=== PATIENT | female | born 1985 | race Caucasian/White ===

== ENCOUNTER → 2017-12-01 12:50 | Outpatient (CLI) | payer MEDICAID, SELFPAY ==
[2017-12-01 13:39] LABS: Absolute Lymphocyte Count 1.79 X10^3/ul (0.83-4.51); Absolute Neutrophil Count 5.5 X10^3/uL (2.0-7.7); Basophil# 0.05 X10^3/uL; Basophil% 0.6 % (0-1); Eosinophil# 0.13 X10^3/uL; Eosinophils% 1.6 % (0-5); Hematocrit 40.2 % (37-47); Hemoglobin 13.5 g/dl (12.0-15.0); Lymphocyte # 1.79 X10^3/ul (4.0); Lymphocyte % 22.2 % (19-41); Mean Corp Hgb Conc 33.6 g/gl (32-36); Mean Corpuscular Hgb 28.5 pg (27.0-32.0); Mean Platelet Vol. 11.4 fl (6.2-12.0); Monocyte# 0.62 X10^3/uL; Monocyte% 7.7 % (0-10); Neutrophil # 5.46 X10^3/uL (2.7-7.7); Neutrophil % 67.7 % (47-70); Platelet Count 287 K/mm3 (150-450); RBC Distribution Width CV 14.8 % (11.6-14.6); RBC Distribution Width SD 44.8 fl (35.1-43.9); Red Blood Count 4.73 M/mm3 (4.2-5.4); White Blood Count 8.1 K/mm3 (4.4-11.0)
[2017-12-01 13:47] LABS: POSITIVE COUNT NO; POSITIVE DIFFERENTIAL NO; POSITIVE MORPHOLOGY NO
[2017-12-01 14:34] LABS: Free T3 2.7 pg/mL (2.18-3.98); T4 Free Direct 1.33 ng/dL (0.76-1.46)
[2017-12-01 15:05] LABS: HIV - WCH Non-Reactive (Nonreactive); Rubella IgG 20.7 IU/mL
[2017-12-01 18:11] LABS: Chlamydia Trachomatis by PCR Negative (Negative); Neisserai gonorrhoeae by PCR Negative (Negative); Probe Check PASS; Sample Adequacy Control PASS; Specimen Processing Control PASS
[2017-12-02 14:24] LABS: HEPATITIS B SURFACE AG Negative (Negative)
[2017-12-04 10:15] LABS: HPV Reflexed? NOT INDICATED
[2017-12-05 02:34] LABS: Rapid Plasmin Reagin (RPR) NONREACTIVE (NONREACTIVE)
== END ==
PROVIDERS: Nurse Practitioner; Visit Provider Obstetrics & Gynecology
DX: O99.280 Endocrine, nutritional and metabolic diseases complicating pregnancy, unspecified trimester (principal); E03.9 Hypothyroidism, unspecified; Z3A.00 Weeks of gestation of pregnancy not specified; Z12.4 Encounter for screening for malignant neoplasm of cervix
CPT/HCPCS: 36415; 84439; 84443; 84481; 85025; 86592; 86703; 86762; 86850; 86900; 87086; 87088; 87340; 87491; 87591; 88175; G0145

== ENCOUNTER → 2018-01-05 14:12 | Outpatient (CLI) | payer MEDICAID, SELFPAY ==
[2018-01-05 15:41] LABS: Free T3 2.8 pg/mL (2.18-3.98); Thyroid Stim Hormone (TSH) 0.25 uIU/mL (0.358-3.74)
[2018-01-08 03:07] LABS: AFP MoM Value 0.86 (.); AFP Value-EIA 22.7 ng/mL (.); Comment Report (.); DIA MoM Value 1.26 (.); DIA Value-EIA 175.46 pg/mL (.); DSR (By Age) 477 (.); DSR (Second Trimester) 339 (.); Gestat. Age Based On As provided (.); Insulin Dep Diabetes No (.); Maternal Age At EDD 32.6 yr (.); hCG MoM 2.24 (.); hCG Value 69554 mIU/mL (.)
== END ==
PROVIDERS: Nurse Practitioner; Nurse Practitioner Women's Health; Visit Provider Obstetrics & Gynecology
DX: O99.281 Endocrine, nutritional and metabolic diseases complicating pregnancy, first trimester (principal); E03.9 Hypothyroidism, unspecified; Z84.89 Family history of other specified conditions; Z3A.00 Weeks of gestation of pregnancy not specified
CPT/HCPCS: 36415; 82105; 82677; 84439; 84443; 84481; 84702; 86336

== ENCOUNTER → 2018-01-30 15:41 | Outpatient (CLI) | payer MEDICAID, SELFPAY ==
--- NOTE | 2018-01-30 15:43 | US_ITS ---
STUDY: SECOND AND THIRD TRIMESTER OBSTETRICAL ULTRASOUND REASON FOR EXAM: Female, 32 years old. 2nd trimester OB ultrasound with anatomy survey and biometrics. LMP: 09/15/2017. GA (LMP) 19 week 4 day, with SILVIO 06/22/2018. TECHNIQUE: Transabdominal ultrasound. PRIOR ULTRASOUND: None. FINDINGS: There is a single intrauterine fetus. The fetus is in a cephalic presentation. There is demonstrated cardiac activity with a heart rate of 133 bpm. There is a normal amniotic fluid volume. The largest amniotic fluid pocket measures 4.6. The placenta is posterior fundal not low-lying There are Grade 0 placental changes. The cervix measures 3.6 cm in length. Closed cervix. BIOMETRY: BPD: 4.34 cm: 19 weeks, 1 days HC: 16.77 cm: 19 weeks, 4 days AC: 14.99 cm: 20 weeks, 2 days FL: 2.9 cm: 19 weeks, 0 days CI: 73% FL/BPD: 67% FL/AC: 19% HC/AC: 1.12 age by current US: 19 weeks, 4 days. SILVIO by current US: 06/22/2018. Estimated weight: 301 grams, +/- 44 grams, 46 %. ANATOMY: Gender: Male Cranium: Normal lateral ventricles. Normal choroid plexus. Normal cerebellum. Normal cisterna magna. Normal face, nose and lips. Chest: Normal 4-chamber heart. Abdomen/Pelvis: Normal diaphragm. Normal stomach. Normal abdominal wall. Normal cord insertion. Normal 3 vessel cord. Normal kidneys. Normal bladder. Spine: Normal cervical spine. Normal thoracic spine. Normal lumbar spine. Normal sacrum. Extremities: Normal bilateral upper extremities. Normal bilateral lower extremities. US/OB Anatomy Scan IMPRESSION: 1. The complete anatomic survey is satisfactory, with no anatomic malady observed. 2. Single live intrauterine gestation. No acute or maternal abnormality is evident. 3. Measurements on today's study are consistent with 19 week 4 day gestation with SILVIO of 06/22/2018 concordant with expected dates based on last menses. Electronically Signed: Santo Theresa, at 16:31 EDT Tel , Service support ,
== END ==
PROVIDERS: Visit Provider Obstetrics & Gynecology
DX: Z34.90 Encounter for supervision of normal pregnancy, unspecified, unspecified trimester (principal); Z84.89 Family history of other specified conditions
CPT/HCPCS: 76805

== ENCOUNTER → 2018-03-26 15:24 | Outpatient (CLI) | payer MEDICAID, SELFPAY ==
[2018-03-26 17:30] LABS: Absolute Lymphocyte Count 1.83 X10^3/ul (0.83-4.51); Absolute Neutrophil Count 6.2 X10^3/uL (2.0-7.7); Basophil# 0.03 X10^3/uL; Basophil% 0.3 % (0-1); Eosinophil# 0.16 X10^3/uL; Eosinophils% 1.8 % (0-5); Hematocrit 34.6 % (37-47); Hemoglobin 11.2 g/dl (12.0-15.0); Lymphocyte # 1.83 X10^3/ul (4.0); Lymphocyte % 20.4 % (19-41); Mean Corp Hgb Conc 32.4 g/gl (32-36); Mean Corpuscular Hgb 27.9 pg (27.0-32.0); Mean Corpuscular Volume 86.1 fL (81-99); Monocyte# 0.75 X10^3/uL; Monocyte% 8.4 % (0-10); Neutrophil # 6.18 X10^3/uL (2.7-7.7); Neutrophil % 68.8 % (47-70); Platelet Count 244 K/mm3 (150-450); RBC Distribution Width CV 13.3 % (11.6-14.6); RBC Distribution Width SD 40.8 fl (35.1-43.9); Red Blood Count 4.02 M/mm3 (4.2-5.4)
[2018-03-26 17:34] LABS: POSITIVE COUNT NO; POSITIVE DIFFERENTIAL NO; POSITIVE MORPHOLOGY NO
[2018-03-26 17:38] LABS: Glucose Challenge Gest 1H 50g 107 mg/dL (70-140)
== END ==
PROVIDERS: Visit Provider Obstetrics & Gynecology
DX: Z34.90 Encounter for supervision of normal pregnancy, unspecified, unspecified trimester (principal)
CPT/HCPCS: 36415; 82950; 85025

== ENCOUNTER → 2018-04-23 18:02 | Outpatient (CLI) | payer MEDICAID, SELFPAY ==
[2018-04-23 18:37] LABS: Protein:Creat Ratio 461 mg/g CRE (0-200)
== END ==
PROVIDERS: Visit Provider Nurse Practitioner Women's Health
DX: R80.9 Proteinuria, unspecified (principal)
CPT/HCPCS: 82570; 84156

== ENCOUNTER → 2018-05-21 16:07 | Outpatient (CLI) | payer MEDICAID, SELFPAY ==
[2018-05-21 17:13] LABS: Absolute Lymphocyte Count 1.64 X10^3/ul (0.83-4.51); Absolute Neutrophil Count 5.3 X10^3/uL (2.0-7.7); Basophil# 0.02 X10^3/uL; Basophil% 0.3 % (0-1); Eosinophils% 1.3 % (0-5); Hemoglobin 10.1 g/dl (12.0-15.0); Lymphocyte # 1.64 X10^3/ul (4.0); Lymphocyte % 21.8 % (19-41); Mean Corp Hgb Conc 31.6 g/gl (32-36); Mean Corpuscular Hgb 25.8 pg (27.0-32.0); Mean Corpuscular Volume 81.6 fL (81-99); Monocyte# 0.45 X10^3/uL; Neutrophil % 70.5 % (47-70); Platelet Count 250 K/mm3 (150-450); RBC Distribution Width CV 14.4 % (11.6-14.6); RBC Distribution Width SD 43.1 fl (35.1-43.9); Red Blood Count 3.92 M/mm3 (4.2-5.4); White Blood Count 7.5 K/mm3 (4.4-11.0)
[2018-05-21 17:14] LABS: POSITIVE COUNT NO; POSITIVE DIFFERENTIAL NO; POSITIVE MORPHOLOGY NO
[2018-05-21 17:47] LABS: ALB/GLOB Ratio 0.5 RATIO (0.9-2.4); AST(SGOT) 20 U/L (15-37); Alanine Aminotransfer ALT/SGPT 15 U/L (13-56); Albumin, Serum 2.4 g/dL (3.2-5.0); Alkaline Phosphatase 151 U/L (45-117); Anion Gap 9 (5-15); BUN 7 mg/dL (7-18); BUN/Creat Ratio 10.6 RATIO (10-20); Calcium,Total 8.6 mg/dL (8.5-10.1); Chloride 101 mmol/L (98-107); Creatinine, Serum 0.66 mg/dL (0.55-1.02); EST Glomerular Filtration Rate 110 mL/min (>60); Est Glom Filt Rate - Afr Amer 133 mL/min (>60); Globulin 4.4 g/dL (2.2-4.2); Glucose 126 mg/dL (74-106); LDH 175 U/L (84-246); Potassium 3.7 mmol/L (3.5-5.1); Protein, Total 6.8 g/dL (6.4-8.2); Sodium Level 135 mmol/L (136-145); Uric Acid 2.1 mg/dL (2.6-6.0)
[2018-05-22 09:17] LABS: Protein, Urine (Random) 118.3 mg/dL (<11.9); Protein:Creat Ratio 410 mg/g CRE (0-200)
== END ==
PROVIDERS: Nurse Practitioner Women's Health; Visit Provider Obstetrics & Gynecology
DX: O12.10 Gestational proteinuria, unspecified trimester (principal); Z3A.00 Weeks of gestation of pregnancy not specified
CPT/HCPCS: 36415; 80053; 82570; 83615; 84156; 84550; 85025

== ENCOUNTER → 2018-05-28 17:10 | Outpatient (CLI) | payer MEDICAID, SELFPAY ==
[2018-05-28 18:36] LABS: Group B Strep DNA By PCR POSITIVE (Negative); Probe Check PASS
== END ==
PROVIDERS: Referring Provider Obstetrics & Gynecology; Visit Provider Obstetrics & Gynecology
DX: Z34.83 Encounter for supervision of other normal pregnancy, third trimester (principal)
CPT/HCPCS: 87653

== ENCOUNTER → 2018-06-10 14:49 | Outpatient (CLI) | payer MEDICAID, SELFPAY ==
[2018-06-10 15:29] LABS: Protein, Urine (Random) 69.5 mg/dL (<11.9); Protein:Creat Ratio 261 mg/g CRE (0-200)
[2018-06-10 15:59] LABS: Absolute Lymphocyte Count 1.66 X10^3/ul (0.83-4.51); Absolute Neutrophil Count 3.9 X10^3/uL (2.0-7.7); Basophil# 0.03 X10^3/uL; Basophil% 0.5 % (0-1); Eosinophil# 0.04 X10^3/uL; Eosinophils% 0.7 % (0-5); Hematocrit 31.8 % (37-47); Hemoglobin 9.6 g/dl (12.0-15.0); Lymphocyte # 1.66 X10^3/ul (4.0); Lymphocyte % 27.5 % (19-41); Mean Corp Hgb Conc 30.2 g/gl (32-36); Mean Corpuscular Hgb 24.3 pg (27.0-32.0); Mean Corpuscular Volume 80.5 fL (81-99); Mean Platelet Vol. 12.5 fl (6.2-12.0); Monocyte# 0.44 X10^3/uL; Monocyte% 7.3 % (0-10); Neutrophil # 3.86 X10^3/uL (2.7-7.7); Neutrophil % 63.8 % (47-70); Platelet Count 218 K/mm3 (150-450); RBC Distribution Width SD 44.3 fl (35.1-43.9); Red Blood Count 3.95 M/mm3 (4.2-5.4)
[2018-06-10 16:01] LABS: POSITIVE COUNT NO; POSITIVE DIFFERENTIAL NO; POSITIVE MORPHOLOGY NO
[2018-06-10 16:46] LABS: ALB/GLOB Ratio 0.6 RATIO (0.9-2.4); AST(SGOT) 22 U/L (15-37); Alanine Aminotransfer ALT/SGPT 17 U/L (13-56); Albumin, Serum 2.4 g/dL (3.2-5.0); Alkaline Phosphatase 159 U/L (45-117); Anion Gap 7 (5-15); BUN 7 mg/dL (7-18); BUN/Creat Ratio 11.4 RATIO (10-20); Calcium,Total 8.6 mg/dL (8.5-10.1); Chloride 103 mmol/L (98-107); Creatinine, Serum 0.61 mg/dL (0.55-1.02); EST Glomerular Filtration Rate 120 mL/min (>60); Est Glom Filt Rate - Afr Amer 145 mL/min (>60); Globulin 4.2 g/dL (2.2-4.2); Glucose 83 mg/dL (74-106); LDH 184 U/L (84-246); Potassium 3.6 mmol/L (3.5-5.1); Protein, Total 6.6 g/dL (6.4-8.2); Sodium Level 136 mmol/L (136-145); Uric Acid 2.7 mg/dL (2.6-6.0)
[2018-06-10 16:57] LABS: T4 Free Direct 0.98 ng/dL (0.76-1.46); Thyroid Stim Hormone (TSH) 2.36 uIU/mL (0.358-3.74)
== END ==
PROVIDERS: Nurse Practitioner; Nurse Practitioner Women's Health; Referring Provider Obstetrics & Gynecology; Visit Provider Obstetrics & Gynecology
DX: O12.10 Gestational proteinuria, unspecified trimester (principal); O99.280 Endocrine, nutritional and metabolic diseases complicating pregnancy, unspecified trimester; E03.9 Hypothyroidism, unspecified; Z3A.00 Weeks of gestation of pregnancy not specified
CPT/HCPCS: 36415; 80053; 82570; 83615; 84156; 84439; 84443; 84481; 84550; 85025

== ENCOUNTER 2018-06-21 09:12 | Inpatient (IN) | payer MEDICAID, SELFPAY ==
[2018-06-21 09:46] VITALS: BMI 36.9
[2018-06-21] MEDS: Lactated Ringers 1,000 ML 50 ML IV ×2 (10:17→12:17)
[2018-06-21 10:18] LABS: Hematocrit 32.5 % (37-47); Hemoglobin 9.9 g/dl (12.0-15.0); Mean Corp Hgb Conc 30.5 g/gl (32-36); Mean Corpuscular Hgb 24.2 pg (27.0-32.0); Mean Corpuscular Volume 79.5 fL (81-99); Mean Platelet Vol. 12.1 fl (6.2-12.0); Platelet Count 205 K/mm3 (150-450); RBC Distribution Width CV 15.6 % (11.6-14.6); RBC Distribution Width SD 45.4 fl (35.1-43.9); Red Blood Count 4.09 M/mm3 (4.2-5.4); White Blood Count 6.4 K/mm3 (4.4-11.0)
[2018-06-21 10:19] LABS: Scan Indicated on CBC? Y/N NO
[2018-06-21] MEDS: fentaNYL-bupivacaine (epidural) 100 ML BAG EPIDURAL (12:41)
--- NOTE | 2018-06-21 12:53 | PCM.HP.OB ---
- Problem List (1) Active labor at term Status: Acute (2) GBS (group B Streptococcus carrier), +RV culture, currently Status: Acute (3) Proteinuria affecting Status: Acute Qualifiers: Comment: home bp checks and weekly nsts until delivery (4) Status: Acute Qualifiers: Comment: negative sequential screen. normal anatomy scan. (5) Contraception management Status: Acute Qualifiers: Comment: plan PPTL title 19 signed 04/09/18 (6) Family history of genetic disease Status: Acute Comment: previous child with tri21 with small heart defect, s/p MFM (7) Supervision of normal Status: Acute Qualifiers: Comment: PRR SILVIO 06/22/18 Boy PC Mingo Camacho, Chris Quentin (8) Hypothyroidism Status: Chronic Qualifiers: Comment: see endocrine- NEEDS TSH AND T4 ON 06/04/18 History Date of Admission: 01/30/16 Final SILVIO: 06/22/18 Gestational age: 39 Weeks and 6 Days History of this : This is a 32 year-old, at 39 weeks gestational age presents IAL 5 cm dilated. she has had a complicated by proteinuria, co ctx increasing over the last few hours, denies vb or lof and admits good fm. she is wanting an epidural Medical History: Medical History (Last Reviewed 06/16/18 @ 13:59 by Sue Alvarez) Hypothyroidism (Chronic) E03.9 see endocrine- NEEDS TSH AND T4 ON 06/04/18 Surgical History: Surgical History (Last Reviewed 06/16/18 @ 13:59 by Sue Alvarez) S/P cholecystectomy Z90.49 S/P thyroidectomy E89.0 Allergies No Known Allergies Allergy (Verified 06/16/18 13:58) Home Medications: Home Medications vitamin,calcium,nupyxuuu-jcam-teuuj acid tablet 1 tab PO QDAY 12/01/17 promethazine 12.5 mg tablet 12.5 mg PO Q6H PRN #30 tab 12/31/17 Levothyroxine [Synthroid] 137 mcg PO .COMPLEX 06/21/18 Ranitidine HCl [Acid Control] 150 mg PO BID 06/21/18 blood pressure monitor kit 0 .ROUTE .MEDSUPPLY 06/21/18 Smoking Status: Former smoker History Past Pregnancies: Past PregnanciesPregancy History 4 Elective abortions Hx Para 3 Spontaneous abortions Hx # Term Pregnancies Ectopic pregnancies Hx # Pregnancies Multiple births # of living children Past Pregnancies Del. Date Name GA/Weeks Outcome Route Bth Weight Infant Gen Labor Lgth Anesthesia Del Locatn Provider FOB 09/07/06 Feliberto 39 live - full term Male [facility] Dr. Pa 07/23/11 Jesus Manuelherrera live - full term Female [facility] Dr. Hernandez 01/31/16 Chris live - full term Male [facility] JV SILVIO Calculator Estimated Delivery Date 06/22/18 Based on Ultrasound Date 12/01/17 Current WG 39w 1d Number 1 Expected Delivery Route/Plan plan PPTL title 19 signed Specific Issue/Plans flu vaccine: given tdap vaccine: given rhogam: na LARC form signed: declined labor support person: Quentin pain management: epidural cut cord/dad catch: yes : yes PP control planned: BPS PP special requests: [] Labs: Mom's Labs & Results 06/21/18 06/21/18 09:55 09:55 WBC 6.4 RBC 4.09 L Hgb 9.9 L Hct 32.5 L MCV 79.5 L MCH 24.2 L MCHC 30.5 L RDW 15.6 H RDW Differential 45.4 H Plt Count 205 MPV 12.1 H Blood Type O POSITIVE Antibody Screen NEGATIVE Course Did the patient receive Yes care? Labs Blood Type: O RH: POSITIVE RPR/VDRL/Syphilis Nonreactive Rubella status Immune HbSAg Negative Date Done: 12/01/17 Chlamydia Negative Gonorrhea Negative HIV/AIDS Non-Reactive Group B Strep: Positive Current Obstetrical History Gestational Diabetes No Incompetent Cervix No Infertility No IUGR No Macrosomia No Hypertension/Pre-eclampsia No Placenta Previa/Abruption No PTL/PROM No Uterine anomaly No Oligohydramnios No Polyhydramnios No Multiple gestation No Past Medical History Asthma No Diabetes No Hypertension No Heart disease No Mitral valve prolapse No Neurologic/Seizure disorder/ No Migraines Kidney disease No Liver disease No Varicosities No Clotting disorders/Hx of DVT No Thyroid Dysfunction Yes Other medical diseases No Psychiatric disorders No Major trauma No Abnormal PAP smear No Sleep apnea No Mammogram in the last 2 years No Social History Marital Status: Alleged father Quentin Hx Smoking Yes Smoking Status Former smoker Expected Delivery Method: Spontaneous Vaginal Describe any other labor & delivery plans:: SILVIO Calculator. Estimated Delivery Date 06/22/18. Based on Ultrasound Date 12/01/17. Current WG 39w 1d. Number 1. Expected Delivery Route/Plan. plan PPTL title 19 signed. Specific Issue/Plans. flu vaccine: given. tdap vaccine: given. rhogam: na. LARC form signed: declined. labor support person: Quentin. pain management: epidural. cut cord/dad catch: yes. : yes. PP control planned: BPS PP Review of Systems Constitutional: Denies: Fever, Malaise Eyes: Denies: Blurred vision, Vision Change HEENT: Denies: Head Aches, Visual Changes Cardiovascular: Denies: Chest Pain, Palpitations Respiratory: Denies: Cough, Shortness of Breath, Wheezing Gastrointestinal: Denies: Abdominal Pain, Diarrhea, Nausea, Vomiting Genitourinary: Denies: Dysuria, Hematuria Musculoskeletal: Denies: Joint Pain, Muscle pain Skin: Denies: Lesions, Rash Neurological: Denies: Blurred vision, Focal weakness, Headaches Psychiatric: Denies: Anxiety, Depression Endocrine: Denies: Heat/ Cold Intolerance Hematologic/ Lymphatic: Denies: Easy Bruising, Easy Bleeding Physical Exam General: Alert, Cooperative, No apparent distress HEENT: Atraumatic, Normocephalic. Negative for: Thyromegaly, Lymphadenopathy Cardiovascular: Regular rate Lungs: Normal air movement Abdomen: Soft, Non Tender, Gravid Neurological: Deep Tendon Reflexes 2+/4 and Symmetrical, Neuro grossly intact. Negative for: Clonus [employer] MED[employer]: Normal external genitalia. Negative for: Vulvar lesions Estimated gestational size: Appropriate for gestational size Presentation: Cephalic Assessment/Plan All Active Problems (Last Reviewed 06/16/18 @ 13:59 by Sue Alvarez) Active labor at term (Acute) GBS (group B Streptococcus carrier), +RV culture, currently (Acute) Proteinuria affecting (Acute) (Acute) Contraception management (Acute) Family history of genetic disease (Acute) Supervision of normal (Acute) screening encounter (Resolved) This is a 32 year-old, at 39 weeks gestational age presents IAL Patient presents IAL, plan expectant management for , pitocin/AROM PRN if needed. Pain management:plans epidural GBS positive plan IV PCN. Management of any complications: none I have reviewed the [facility] and made any clinically relevant updates.
--- NOTE | 2018-06-21 12:56 | HP.PCM_ITS ---
- Problem List (1) Active labor at term Status: Acute (2) GBS (group B Streptococcus carrier), +RV culture, currently Status: Acute (3) Proteinuria affecting Status: Acute Qualifiers: Comment: home bp checks and weekly nsts until delivery (4) Status: Acute Qualifiers: Comment: negative sequential screen. normal anatomy scan. (5) Contraception management Status: Acute Qualifiers: Comment: plan PPTL title 19 signed 04/09/18 (6) Family history of genetic disease Status: Acute Comment: previous child with tri21 with small heart defect, s/p MFM (7) Supervision of normal Status: Acute Qualifiers: Comment: PRR SILVIO 06/22/18 Boy PC Mingo Camacho, Chris Quentin (8) Hypothyroidism Status: Chronic Qualifiers: Comment: see endocrine- NEEDS TSH AND T4 ON 06/04/18 History Date of Admission: 01/30/16 Final SILVIO: 06/22/18 Gestational age: 39 Weeks and 6 Days History of this : This is a 32 year-old, at 39 weeks gestational age presents IAL 5 cm dilated. she has had a complicated by proteinuria, co ctx increasing over the last few hours, denies vb or lof and admits good fm. she is wanting an epidural Medical History: Medical History (Last Reviewed 06/16/18 @ 13:59 by Sue Alvarez) Hypothyroidism (Chronic) E03.9 see endocrine- NEEDS TSH AND T4 ON 06/04/18 Surgical History: Surgical History (Last Reviewed 06/16/18 @ 13:59 by Sue Alvarez) S/P cholecystectomy Z90.49 S/P thyroidectomy E89.0 Allergies No Known Allergies Allergy (Verified 06/16/18 13:58) Home Medications: Home Medications vitamin,calcium,tpvldary-wmxf-moide acid tablet 1 tab PO QDAY 12/01/17 promethazine 12.5 mg tablet 12.5 mg PO Q6H PRN #30 tab 12/31/17 Levothyroxine [Synthroid] 137 mcg PO .COMPLEX 06/21/18 Ranitidine HCl [Acid Control] 150 mg PO BID 06/21/18 blood pressure monitor kit 0 .ROUTE .MEDSUPPLY 06/21/18 Smoking Status: Former smoker History Past Pregnancies: Past PregnanciesPregancy History 4 Elective abortions Hx Para 3 Spontaneous abortions Hx # Term Pregnancies Ectopic pregnancies Hx # Pregnancies Multiple births # of living children Past Pregnancies Del. Date Name GA/Weeks Outcome Route Bth Weight Infant Gen Labor Lgth Anesthesia Del Locatn Provider FOB 09/07/06 Feliberto 39 live - full term Male [facility] Dr. Pa 07/23/11 Jesus Manuelherrera live - full term Female [facility] Dr. Hernandez 01/31/16 Chris live - full term Male [facility] JV SILVIO Calculator Estimated Delivery Date 06/22/18 Based on Ultrasound Date 12/01/17 Current WG 39w 1d Number 1 Expected Delivery Route/Plan plan PPTL title 19 signed Specific Issue/Plans flu vaccine: given tdap vaccine: given rhogam: na LARC form signed: declined labor support person: Quentin pain management: epidural cut cord/dad catch: yes : yes PP control planned: BPS PP special requests: [] Labs: Mom's Labs & Results 06/21/18 06/21/18 09:55 09:55 WBC 6.4 RBC 4.09 L Hgb 9.9 L Hct 32.5 L MCV 79.5 L MCH 24.2 L MCHC 30.5 L RDW 15.6 H RDW Differential 45.4 H Plt Count 205 MPV 12.1 H Blood Type O POSITIVE Antibody Screen NEGATIVE Course Did the patient receive Yes care? Labs Blood Type: O RH: POSITIVE RPR/VDRL/Syphilis Nonreactive Rubella status Immune HbSAg Negative Date Done: 12/01/17 Chlamydia Negative Gonorrhea Negative HIV/AIDS Non-Reactive Group B Strep: Positive Current Obstetrical History Gestational Diabetes No Incompetent Cervix No Infertility No IUGR No Macrosomia No Hypertension/Pre-eclampsia No Placenta Previa/Abruption No PTL/PROM No Uterine anomaly No Oligohydramnios No Polyhydramnios No Multiple gestation No Past Medical History Asthma No Diabetes No Hypertension No Heart disease No Mitral valve prolapse No Neurologic/Seizure disorder/ No Migraines Kidney disease No Liver disease No Varicosities No Clotting disorders/Hx of DVT No Thyroid Dysfunction Yes Other medical diseases No Psychiatric disorders No Major trauma No Abnormal PAP smear No Sleep apnea No Mammogram in the last 2 years No Social History Marital Status: Alleged father Quentin Hx Smoking Yes Smoking Status Former smoker Expected Delivery Method: Spontaneous Vaginal Describe any other labor & delivery plans:: SILVIO Calculator. Estimated Delivery Date 06/22/18. Based on Ultrasound Date 12/01/17. Current WG 39w 1d. Number 1. Expected Delivery Route/Plan. plan PPTL title 19 signed. Specific Issue/Plans. flu vaccine: given. tdap vaccine: given. rhogam: na. LARC form signed: declined. labor support person: Quentin. pain management: epidural. cut cord/dad catch: yes. : yes. PP control planned: BPS PP Review of Systems Constitutional: Denies: Fever, Malaise Eyes: Denies: Blurred vision, Vision Change HEENT: Denies: Head Aches, Visual Changes Cardiovascular: Denies: Chest Pain, Palpitations Respiratory: Denies: Cough, Shortness of Breath, Wheezing Gastrointestinal: Denies: Abdominal Pain, Diarrhea, Nausea, Vomiting Genitourinary: Denies: Dysuria, Hematuria Musculoskeletal: Denies: Joint Pain, Muscle pain Skin: Denies: Lesions, Rash Neurological: Denies: Blurred vision, Focal weakness, Headaches Psychiatric: Denies: Anxiety, Depression Endocrine: Denies: Heat/ Cold Intolerance Hematologic/ Lymphatic: Denies: Easy Bruising, Easy Bleeding Physical Exam General: Alert, Cooperative, No apparent distress HEENT: Atraumatic, Normocephalic. Negative for: Thyromegaly, Lymphadenopathy Cardiovascular: Regular rate Lungs: Normal air movement Abdomen: Soft, Non Tender, Gravid Neurological: Deep Tendon Reflexes 2+/4 and Symmetrical, Neuro grossly intact. Negative for: Clonus [employer]: Normal external genitalia. Negative for: Vulvar lesions Estimated gestational size: Appropriate for gestational size Presentation: Cephalic Assessment/Plan All Active Problems (Last Reviewed 06/16/18 @ 13:59 by Sue Alvarez) Active labor at term (Acute) GBS (group B Streptococcus carrier), +RV culture, currently (Acute) Proteinuria affecting (Acute) (Acute) Contraception management (Acute) Family history of genetic disease (Acute) Supervision of normal (Acute) screening encounter (Resolved) This is a 32 year-old, at 39 weeks gestational age presents IAL Patient presents IAL, plan expectant management for , pitocin/AROM PRN if needed. Pain management:plans epidural GBS positive plan IV PCN. Management of any complications: none I have reviewed the [facility] and made any clinically relevant updates.
[2018-06-21] MEDS: Oxytocin 30 units/NS 500 ml 30 UNITS/500 ML IV.SOLN 334 UNITS IV (15:30)
--- NOTE | 2018-06-21 15:44 | PCM.OB.VAG ---
- Problem List (1) Active labor at term Status: Acute (2) GBS (group B Streptococcus carrier), +RV culture, currently Status: Acute (3) Proteinuria affecting Status: Acute Qualifiers: Comment: home bp checks and weekly nsts until delivery (4) Status: Acute Qualifiers: Comment: negative sequential screen. normal anatomy scan. (5) Contraception management Status: Acute Qualifiers: Comment: plan PPTL title 19 signed 04/09/18 (6) Family history of genetic disease Status: Acute Comment: previous child with tri21 with small heart defect, s/p MFM (7) Supervision of normal Status: Acute Qualifiers: Comment: PRR SILVIO 06/22/18 Boy PC Mingo Camacho, Chris Quentin (8) Hypothyroidism Status: Chronic Qualifiers: Comment: see endocrine- NEEDS TSH AND T4 ON 06/04/18 Vaginal Delivery Maternal Presentation: Active Labor ial 39w6d Amniotic Membrane Rupture Type: Artificial Amniotic Fluid Description: Clear Final SILVIO: 06/22/18 Gestational age: 39 Weeks and 6 Days Date of Procedure: 06/21/18 Pre-Operative Diagnosis: ial Post-Operative Diagnosis: same Surgery/ Procedure Performed: Spontaneous Vaginal Delivery Type of Anesthesia: Epidural Description of Procedure: head crowned and delivered atraumatically loos nuchal cord x 1 reduced over the head and the rest of the infant delivered. delayed cord clamping for 60 seconds and then the placenta delivered intact. no lacerations. Presentation: MARY Placental Delivery Description: Spontaneous Placenta Disposition: [facility] Cord Vessel Description: 3 Vessels Nuchal Cord Compression: Without compression Cord Entanglement: Around neck x 1, loose Estimated Blood Loss: 200 A gender: Male Episiotomy Description: None Laceration: None Medications given after delivery: IV Pitocin Complications: None
[2018-06-21] MEDS: Oxytocin 30 units/NS 500 ml 30 UNITS/500 ML IV.SOLN 167 UNITS IV (16:00)
[2018-06-21] MEDS: Methylergonovine 0.2 MG/ML Ampul IM (17:30)
[2018-06-21] MEDS: 0.9% Saline Lock 10 ML Syringe IV (18:43)
[2018-06-21 19:25] VITALS: BP 146/76; PULSE 71; RESP 16; TEMP 36.7
[2018-06-21] MEDS: Naproxen 250 MG Tablet PO (19:35)
[2018-06-21] MEDS: Famotidine 20 MG Tablet PO (22:04)
[2018-06-21 22:36] VITALS: BP 132/77; PULSE 68; RESP 16; TEMP 36.8
--- NOTE | 2018-06-21 22:37 | NURSING ---
2220 pt states she was just up to bathroom and feel she has leakage when gets up, no clots, pad in bathroom with moderate amount of drainage light red. fundus firm at u. pt wiped with chorahexidine wipes and gown changed in preparation for tubal tomorrow.
[2018-06-22] VITALS (12 sets, daily range): BP systolic 111–139; BP diastolic 63–87; PULSE 60–75; RESP 14–18; TEMP 36.1–36.8; O2SAT 95–100; BMI 36.9
--- NOTE | 2018-06-22 01:13 | NURSING ---
Patient up to bathroom and voided 150mL. Patient also states she is leaking urine while walking, pad saturated with urine.
[2018-06-22] MEDS: Lactated Ringers 1,000 ML 125 ML IV (04:10)
[2018-06-22] MEDS: Levothyroxine 137 MCG Tablet PO (07:32)
--- NOTE | 2018-06-22 07:49 | PCM.PN.OB ---
Patient Problems: Active and Suspected Problems (Last Reviewed 06/16/18 @ 13:59 by Sue Alvarez) Active labor at term (Acute) Subjective: Doing well. No CP, SOB. - Physical Exam General: Alert, Oriented x3 Abdomen: Soft, Non Tender, - - FF below U Vital Signs Temp Pulse Resp BP Pulse Ox 97.5 F L 66 14 139/84 H 97 06/22/18 07:40 06/22/18 07:40 06/22/18 07:40 06/22/18 07:40 06/22/18 07:40 Oxygen Delivery Method Room Air Weight: 235 lb 14.314 oz Body Mass Index (BMI) 36.9 Intake and Output for Last 24 Hours 06/20/18 06/21/18 06/22/18 23:59 23:59 23:59 Output Total 600 / 600 150 / 150 Balance -600 / -600 -150 / -150 Laboratory Tests Past 24 Hrs 06/21/18 06/21/18 09:55 09:55 WBC 6.4 RBC 4.09 L Hgb 9.9 L Hct 32.5 L MCV 79.5 L MCH 24.2 L MCHC 30.5 L RDW 15.6 H RDW Differential 45.4 H Plt Count 205 MPV 12.1 H Blood Type O POSITIVE Antibody Screen NEGATIVE Medical Necessity - Tobacco Use Smoking Status: Former smoker Assessment/Plan All Active Problems (Last Reviewed 06/16/18 @ 13:59 by Sue Alvarez) Active labor at term (Acute) GBS (group B Streptococcus carrier), +RV culture, currently (Acute) Proteinuria affecting (Acute) (Acute) Contraception management (Acute) Family history of genetic disease (Acute) Supervision of normal (Acute) screening encounter (Resolved) PPD#1: Routine care. BTO today. .
--- NOTE | 2018-06-22 11:49 | NURSING ---
to OR via bed.
[2018-06-22] MEDS: Cefazolin 2 GM in 0.9% Normal Saline 100 ML IV (12:57)
--- NOTE | 2018-06-22 13:02 | PCM.OPRPT ---
Problem List (1) Active labor at term Status: Acute (2) GBS (group B Streptococcus carrier), +RV culture, currently Status: Acute (3) Proteinuria affecting Status: Acute Qualifiers: Comment: home bp checks and weekly nsts until delivery (4) Status: Acute Qualifiers: Comment: negative sequential screen. normal anatomy scan. (5) Contraception management Status: Acute Qualifiers: Comment: plan PPTL title 19 signed 04/09/18 (6) Family history of genetic disease Status: Acute Comment: previous child with tri21 with small heart defect, s/p MFM (7) Supervision of normal Status: Acute Qualifiers: Comment: PRR SILVIO 06/22/18 Boy PC Janice Mingo, Chris Quentin (8) Hypothyroidism Status: Chronic Qualifiers: Comment: see endocrine- NEEDS TSH AND T4 ON 06/04/18 Report of Operation Date of Procedure: 06/21/18 Pre-Operative Diagnosis: Sterilization request Post-Operative Diagnosis: Same Surgery/Procedure Performed:: tubal ligation via mini laparotomy Description of Surgical Findings:: Normal uterus tubes and ovaries Type of Anesthesia:: Epidural, Local Special Medications: Ancef Specimen's removed: None Drains: Wagoner Fluids Replaced: Crystalloid Description of Procedure: Patient was taken to the operating room and epidural anesthesia was found to be adequate. Patient was placed in the dorsal supine position was prepped and draped in normal sterile fashion. Wagoner catheter was used to drain the bladder. Infra umbilical incision was made with a scalpel after injecting with marcaine and carried through the underlying layer of the fascia with a scalpel fascial incision was extended bilaterally with Ingram scissors and bowel packed away and the right fallopian tube identified confirmed to be fallopian tube by following it out to the fimbria and a Filshie clip was applied in the mid interstitial portion of the fallopian tube noting to completely transect the tube. This was repeated on the left side where the tube was identified and followed out to the fimbria and confirmed to be fallopian tube and then the mid interstitial portion of the tube was completely transected with the Filshie clip. Excellent hemostasis was noted. Fascia was closed with 0 Vicryl and skin closed with 3-0 Monocryl. No complications. Patient was taken recovery in stable condition. Grafts/Implants Used: Filshie clips - Complications None - Admit VTE Documentation VTE Present on Admission: No
[2018-06-22] MEDS: Bupivacaine 0.5% PF 10 ML VIAL (13:13)
[2018-06-22] MEDS: Ibuprofen 600 MG Tablet PO (16:46)
[2018-06-22] MEDS: Acetaminophen 500 MG Tablet 1000 MG PO (22:07)
[2018-06-23] MEDS: Ibuprofen 600 MG Tablet PO ×2 (00:08→05:56)
[2018-06-23 02:20] VITALS: BP 120/70; PULSE 61; RESP 17; TEMP 36.7; O2SAT 96
--- NOTE | 2018-06-23 08:02 | PCM.PN.OB ---
Patient Problems: Active and Suspected Problems (Last Reviewed 06/16/18 @ 13:59 by Sue Alvarez) Active labor at term (Acute) Subjective: NO CP, SOB. Some tenderness from BTO yesterday. Denies concerns. - Physical Exam General: Alert, Oriented x3 Abdomen: Soft, Non-Distended, - - FF below U. Minimal tenderness. Dressing dry and intact. Vital Signs Temp Pulse Resp BP Pulse Ox 98.1 F 61 17 120/70 96 06/23/18 02:20 06/23/18 02:20 06/23/18 02:20 06/23/18 02:20 06/23/18 02:20 Oxygen Delivery Method Room Air Weight: 235 lb 14.314 oz Body Mass Index (BMI) 36.9 Intake and Output for Last 24 Hours 06/21/18 06/22/18 06/23/18 23:59 23:59 23:59 Intake Total 800 / 800 Output Total 600 / 600 150 / 150 Balance -600 / -600 650 / 650 Medical Necessity - Tobacco Use Smoking Status: Former smoker Assessment/Plan All Active Problems (Last Reviewed 06/16/18 @ 13:59 by Sue Alvarez) Active labor at term (Acute) GBS (group B Streptococcus carrier), +RV culture, currently (Acute) Proteinuria affecting (Acute) (Acute) Contraception management (Acute) Family history of genetic disease (Acute) Supervision of normal (Acute) screening encounter (Resolved) PPD#2, BTO POD#1: Pain controlled. Routine care. Plans home today
[2018-06-23] MEDS: Levothyroxine 137 MCG Tablet PO (08:57)
[2018-06-23 08:58] VITALS: BP 129/89; PULSE 59; RESP 16; TEMP 36.6
[2018-06-23] MEDS: Acetaminophen 500 MG Tablet 1000 MG PO (10:07)
--- NOTE | 2018-06-23 12:24 | PCM.DCVAG ---
Additional Instructions: If you experience any of the following, contact your healthcare provider. Bleeding that soaks a pad every hour for 2 hours Fever 100.4 or higher Unrelieved incision or abdominal pain Swelling, redness, discharge or bleeding from your incision or episiotomy site Your incision begins to separate Problems urinating (including inability to urinate or burning while urinating). Visual changes Severe headache Flu-like symptoms Pain or redness in one of both of your breasts Pain, warmth, tenderness or swelling in your legs, especially the calf area Frequent nausea and vomiting Symptoms of depression or anxiety If you experience any of the following, call 911 or go to the nearest Emergency Room. Chest pain Problems breathing Seizure activity Partial or complete paralysis of a body part, slurred speech, weakness or drooping of the face, or a sudden inability to walk or hold your balance Allergies/Adverse Reactions: Allergies No Known Allergies Allergy (Verified 06/16/18 13:58) Medications to take at Discharge vitamin,calcium,xmihpzht-ypgo-udxjg acid tablet 1 tab PO QDAY 12/01/17 promethazine 12.5 mg tablet 12.5 mg PO Q6H PRN #30 tab 12/31/17 Levothyroxine [Synthroid] 137 mcg PO .COMPLEX 06/21/18 Ranitidine HCl [Acid Control] 150 mg PO BID 06/21/18 blood pressure monitor kit 0 .ROUTE .MEDSUPPLY 06/21/18 Naproxen 500 mg PO BID PRN #60 tablet 06/23/18 Oxycodone HCl/Acetaminophen [Percocet 5/325] 1 - 2 tab PO Q4H PRN PRN 3 Days #15 tab 06/23/18 The following prescriptions were given: Oxycodone HCl/Acetaminophen [Percocet 5/325] 1 - 2 tab PO Q4H PRN PRN 3 Days #15 tab PRN Reason: Pain Naproxen 500 mg PO BID PRN #60 tablet PRN Reason: Pain Primary Care Physician: Care Physician,No Primary [Primary Care Provider] - Test Results: Test results from this visit will be discussed in further detail at your follow-up appointment, if applicable.
--- NOTE | 2018-06-23 12:25 | DCINST_ITS ---
Additional Instructions: If you experience any of the following, contact your healthcare provider. * Bleeding that soaks a pad every hour for 2 hours * Fever 100.4 or higher * Unrelieved incision or abdominal pain * Swelling, redness, discharge or bleeding from your incision or episiotomy site * Your incision begins to separate * Problems urinating (including inability to urinate or burning while urinating). * Visual changes * Severe headache * Flu-like symptoms * Pain or redness in one of both of your breasts * Pain, warmth, tenderness or swelling in your legs, especially the calf area * Frequent nausea and vomiting * Symptoms of depression or anxiety If you experience any of the following, call 911 or go to the nearest Emergency Room. * Chest pain * Problems breathing * Seizure activity * Partial or complete paralysis of a body part, slurred speech, weakness or drooping of the face, or a sudden inability to walk or hold your balance Allergies/Adverse Reactions: Allergies No Known Allergies Allergy (Verified 06/16/18 13:58) Medications to take at Discharge vitamin,calcium,unqyscwp-mlho-uxlgq acid tablet 1 tab PO QDAY 12/01/17 promethazine 12.5 mg tablet 12.5 mg PO Q6H PRN #30 tab 12/31/17 Levothyroxine [Synthroid] 137 mcg PO .COMPLEX 06/21/18 Ranitidine HCl [Acid Control] 150 mg PO BID 06/21/18 blood pressure monitor kit 0 .ROUTE .MEDSUPPLY 06/21/18 Naproxen 500 mg PO BID PRN #60 tablet 06/23/18 Oxycodone HCl/Acetaminophen [Percocet 5/325] 1 - 2 tab PO Q4H PRN PRN 3 Days #15 tab 06/23/18 The following prescriptions were given: Oxycodone HCl/Acetaminophen [Percocet 5/325] 1 - 2 tab PO Q4H PRN PRN 3 Days #15 tab PRN Reason: Pain Naproxen 500 mg PO BID PRN #60 tablet PRN Reason: Pain Primary Care Physician: Care Physician,No Primary [Primary Care Provider] - Test Results: Test results from this visit will be discussed in further detail at your follow- up appointment, if applicable.
[2018-06-23 14:05] VITALS: BP 121/71; PULSE 71; RESP 16; TEMP 36.3
== END 2018-06-23 14:35 | disposition home or self-care (01) | DRG 541 ==
PROVIDERS: Admitting Provider Obstetrics & Gynecology; Visit Provider Obstetrics & Gynecology
PROC: 0UL70ZZ Occlusion of Bilateral Fallopian Tubes, Open Approach (ICD-10-PCS; principal; 2018-06-22 09:30)
DX: O98.82 Other maternal infectious and parasitic diseases complicating childbirth (principal); B95.1 Streptococcus, group B, as the cause of diseases classified elsewhere; O69.81X0 Labor and delivery complicated by cord around neck, without compression, not applicable or unspecified; O99.284 Endocrine, nutritional and metabolic diseases complicating childbirth; E89.0 Postprocedural hypothyroidism; Z3A.39 39 weeks gestation of pregnancy; Z37.0 Single live birth; Z79.899 Other long term (current) drug therapy
CPT/HCPCS: 59025; 59050; 85027; 86850; 86900; 99218; J7120; A4216; G0378

== ENCOUNTER 2023-09-15 17:17 | Emergency (ER) | payer BC, SELFPAY ==
[2023-09-15 17:18] VITALS: BP 152/93; PULSE 92; RESP 18; TEMP 36.1; O2SAT 97
[2023-09-15 19:52] VITALS: O2SAT 98; BMI 38.3
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
--- OUTSIDE RECORDS SUMMARY | 2023-09-15 20:16 | XMS RPT_ITS | CCD ---
Author Name Unknown Address [address] [place] [address] Organization [facility] Care Team Providers Care Retail Department Manager Name Role Phone Tammie Salmeron NP Unavailable [phone] [place]ot Mingo LINNwna K Unavailable Unavailable ARCELIA MURPHY Unavailable Unavailable CHARISSE MCKENZIE Unavailable Unavailjeana stevens NO PRIMARY CARE, Unavailable Unavailable CHERRY DUNHAM Unavailable Unavawicho labCHERRY Reynolds Unavailable Unavawicho labemili NO PRIMARY CARE, Unavailable Unavailable DAJUAN UGARTE Unavailable Unavailable CHARISSE MCKENZIE Unavailable Unavailabl e NO PRIMARY CARE, Unavailable Unavailable Mingo Dumont CMAwna K Unavailable Unavailable Peridot Mingo LINNwna K Unavailable Unavailable Medications Completed/Discontinued Medications Medication Drug Class(es) Dates Sig (Normalized) Sig (Original) levothyroxine sodium 0.137 mg oral tablet (14 sources) l-Thyroxine Start: 04-15-2017 take 1 tablet by mouth once daily LEVOTHYROXINE SODIUM 137 MCG TABS One tablet by mouth daily, On . and Sun, take wo tablets by mouth daily LEVOTHYROXINE SODIUM [id number] Tammie Salmeron NP Problems Problem Classification Problem Date Documented Da te Episodic/Chronic Thyroid disorders (7 sources) Hypothyroidism; Translations: [Hypothyroidism, unspecified] Onset: 04-16-2017 04-20-2017 Chronic Unclassified (2 sources) No current problems or disability 04-15-2017 Results Test Name Value Interpretation Reference Range Facil ity Vital Signs Date Time Vital Sign Value Performing Clinician [facility] [[email or web address] 06-23-2017 09:54-0400 BMI (Body Mass Index) 36.77 kg/m2 Tammie Salmeron AUTOMATIC LATHE OPERATOR [facility] Work Phone: 06-23-2017 09:54-0400 BP Diastolic 70 mm[Hg] Tammie Salmeron AUTOMATIC LATHE OPERATOR [facility] Work Phone: 06-23-2017 09:54-0400 BP Systolic 110 mm[Hg] Tammie Salmeron AUTOMATIC LATHE OPERATOR [facility] Work Phone: 06-23-2017 09:54-0400 Height 170.18 cm Tammie Salmeron AUTOMATIC LATHE OPERATOR [facility] Work Phone: 06-23-2017 09:54-0400 Pulse (Heart Rate) 64 /min Tammie Salmeron AUTOMATIC LATHE OPERATOR [facility] Work Phone: 06-23-2017 09:54-0400 Respiratory Rate 18 /min Tammie Salmeron AUTOMATIC LATHE OPERATOR [facility] Work Phone: 06-23-2017 09:54-0400 Weight 106.51 kg Tammie Salmeron AUTOMATIC LATHE OPERATOR [facility] Work Phone: 04-16-2017 08:40-0400 BMI (Body Mass Index) 37.99 kg/m2 Elidia Dumont CMA [facility] Work Phone: 04-16-2017 08:40-0400 Body Temperature 98.2 [degF] Elidia Dumont WOOD STOCK BLANK HANDLER [facility] Work Phone: 04-16-2017 08:40-0400 BP Diastolic 70 mm[Hg] Elidia Dumont WOOD STOCK BLANK HANDLER [facility] Work Phone: 04-16-2017 08:40-0400 BP Systolic 111 mm[Hg] Elidia Dumont WOOD STOCK BLANK HANDLER [facility] Work Phone: 04-16-2017 08:40-0400 Height 170.18 cm Elidia Dumont WOOD STOCK BLANK HANDLER [facility] Work Phone: 04-16-2017 08:40-0400 Pulse (Heart Rate) 65 /min Elidia Dumont CMA [facility] Work Phone: 04-16-2017 08:40-0400 Respiratory Rate 20 /min Elidia Dumont CMA [facility] Work Phone: 04-16-2017 08:40-0400 Weight 110.04 kg Elidia Dumont CMA [facility] Work Phone: Encounters Encounter Date Encounter Type Care Provider Facility Start: 12-18-2017 Patient encounter DAJUAN Perdomo HSANEL [facility] Start: 12-15-2017 End: 12-16-2017 Patient encounter CHERRY CARR [facility] Start: 12-15-2017 End: 12-15-2017 [facility] Procedures Date Procedure Procedure Detail Performing Clinician Start: 06-23-2017 End: 06-23-2017 Thyrotropin [Units/volume] in Serum or Plasma Tammie Salmeron AUTOMATIC LATHE OPERATOR Work Phone: Start: 06-23-2017 End: 06-23-2017 Thyroxine (T4) free [Mass/volume] in Serum or Plasma Tammie Salmeron AUTOMATIC LATHE OPERATOR Work Phone: Start: 04-16-2017 End: 06-01-2017 Thyrotropin [Units/volume] in Serum or Plasma Tammie Salmeron AUTOMATIC LATHE OPERATOR Work Phone: Start: 04-16-2017 End: 06-01-2017 Thyroxine (T4) free [Mass/volume] in Serum or Plasma Tammie Salmeron AUTOMATIC LATHE OPERATOR Work Phone: Start: 04-16-2017 End: 06-01-2017 Triiodothyronine (T3) Free [Mass/volume] in Serum or Plasma Tammie Salmeron AUTOMATIC LATHE OPERATOR Work Phone: Start: 04-16-2017 End: 06-01-2017 Thyroid stimulating hormone (TSH) Tammie Salmeron AUTOMATIC LATHE OPERATOR Work Phone: Start: 04-16-2017 End: 06-01-2017 Thyroxine (T4) free Tammie Salmeron AUTOMATIC LATHE OPERATOR Work Phone: Start: 04-16-2017 End: 06-01-2017 Triiodothyronine (T3) free Tammie Tania No valentino AUTOMATIC LATHE OPERATOR Work Phone: Plan of Treatment Date Care Activity Detail Author Start: 06-23-2017 End: 06-23-2017 Thyroid stimulating hormone (TSH) *TSH [facility] Work Phone: Start: 06-23-2017 End: 06-23-2017 Thyroxine (T4) free *T4 free [facility] Work Phone: Start: 06-23-2017 End: 06-23-2017 Appointment Appointment [facility] Work Phone: Start: 04-16-2017 End: 05-30-2017 Thyroid stimulating hormone (TSH) *TSH [facility] Work Phone: Start: 04-16-2017 End: 05-30-2017 Thyroxine (T4) free *T4 free [facility] Work Phone: Start: 04-16-2017 End: 05-30-2017 Triiodothyronine (T3) free *T3-Free [facility] Work Phone: Start: 04-16-2017 End: 04-16-2017 Appointment Appointment [facility] Work Phone: Start: 04-16-2017 End: 05-30-2017 Thyroid stimulating hormone (TSH) *TSH [facility] Work Phone: Start: 04-16-2017 End: 05-30-2017 Thyroxine (T4) free *T4 free [facility] Work Phone: Start: 04-16-2017 End: 05-30-2017 Triiodothyronine (T3) free *T3-Free [facility] Work Phone: Payers Date Payer Category Payer Unknown [id number] 1985 Unknown [id number] 1985 Unknown [id number] Unknown [id number] Progress note 05-16-2021 Note Date & Type Note Facility 05-16-2021 Note HNO ID: [id number] Author: Angela Love APRN.HIGH SCHOOL COORDINATOR Service: ? Author Type: Nurse Practitioner Type: Progress Notes Filed: 05/16/2021 7:09 PM Note Text: This note was created using NoteWriter. Subjective Melinda Mccarthy is a 35 year old female. 35 year old female with PMH thyroid presents requesting COVID testing. Acute onset of symptoms was 5 days ago. +fever +cough +sore throat Denies SOB or dyspnea. Denies abdominal pain. Denies N/V/D. Endorses she works at [employer]. The history is provided by the patient. No english language learner teacher was used. URI She complains of cough. There is no chest tightness, difficulty breathing, frequent throat clearing, hemoptysis, hoarse voice, shortness of breath, sputum production or wheezing. This is a new problem. The current episode started in the past 7 days. The problem occurs constantly. The problem has been unchanged. The cough is non-productive. Associated symptoms include a fever, malaise/fatigue, myalgias and a sore throat. Pertinent negatives include no appetite change, chest pain, dyspnea on exertion, ear congestion, ear pain, headaches, heartburn, nasal congestion, orthopnea, PND, postnasal drip, rhinorrhea, sneezing, sweats, trouble swallowing or weight loss. Her symptoms are aggravated by nothing. Her symptoms are alleviated by nothing. She reports no improvement on treatment. There are no known risk factors for lung disease. There is no history of asthma, bronchiectasis, bronchitis, COPD, emphysema or pneumonia. PAST MEDICAL HISTORY Diagnosis Date - THYROID DYSFUNC-ANTEPART 08/04/2006 - TOX DIF GOITER NO CRISIS 08/04/2006 PAST SURGICAL HISTORY Procedure Laterality Date - LAP CHOLECYSTECT/CHOLANGIOGRAPHY 03/17/14 acute, Normal IOC - THYROIDECTOMY 12-03-11 TOTAL - UNSPECIFIED ORAL SURGERY PROCEDURE, BY REPORT ALLERGIES Patient has no known allergies. MEDICATIONS meloxicam (MOBIC) 15 mg tablet Take 1 tablet by mouth once daily. levothyroxine (LEVOXYL) 137 mcg tablet Take one pill daily with an extra 1/2 on Fri and medroxyPROGESTERone (DEPO-PROVERA) 150 mg/mL injection Inject 1 mL intramuscularly every 12 weeks. PNV95/FERROUS FUMARATE/FA ( ORAL) Take by mouth. FERROUS SULFATE (IRON ORAL) Take by mouth. omeprazole (PRILOSEC) 20 mg capsule Take 1 capsule by mouth once daily. FAMILY HISTORY Problem Relation Age of Onset - Diabetes Maternal Grandfather - Heart Maternal Grandfather [place] Social History Tobacco Use - Smoking status: Former Smoker Years: 1.00 Quit date: 01/30/2005 Years since quittin.3 - Smokeless tobacco: Never Used - Tobacco comment: SOCIAL SMOKER IN PAST ONLY Substance Use Topics - Alcohol use: Yes Comment: OCCASIONALLY, BUT NOT WHILE - Drug use: No Review of Systems Constitutional: Positive for fever and malaise/fatigue. Negative for appetite change, chills, diaphoresis, fatigue and weight loss. HENT: Positive for congestion and sore throat. Negative for dental problem, drooling, ear discharge, ear pain, hoarse voice, postnasal drip, rhinorrhea, sneezing and trouble swallowing. Eyes: Negative for photophobia, pain, discharge, redness, itching and visual disturbance. Respiratory: Positive for cough. Negative for apnea, hemoptysis, sputum production, choking, chest tightness, shortness of breath and wheezing. Cardiovascular: Negative for chest pain, dyspnea on exertion, palpitations, leg swelling and PND. Gastrointestinal: Negative for abdominal pain, diarrhea, heartburn, nausea and vomiting. Musculoskeletal: Positive for myalgias. Skin: Negative for color change, pallor, rash and wound. Allergic/Immunologic: Negative for environmental allergies, food allergies and immunocompromised state. Neurological: Negative for dizziness, seizures, syncope, facial asymmetry, speech difficulty, light-headedness, numbness and headaches. Hematological: Negative for adenopathy. Does not bruise/bleed easily. Psychiatric/Behavioral: Negative for agitation and behavioral problems. Objective BP 128/86 Pulse 75 Temp 37.2 ?C (98.9 ?F) (Left Tympanic) Resp 16 Wt 106.7 kg (235 lb 3.2 oz) LMP 06/15/2016 (Exact Date) SpO2 97% BMI 36.84 kg/m? Physical Exam Vitals and nursing note reviewed. Constitutional: General: She is not in acute distress. Appearance: Normal appearance. She is normal weight. She is not ill-appearing, toxic-appearing or diaphoretic. HENT: Head: Normocephalic and atraumatic. Right Ear: Ear canal and external ear normal. Left Ear: Ear canal and external ear normal. Nose: Nose normal. No congestion or rhinorrhea. Mouth/Throat: Mouth: Mucous membranes are moist. Pharynx: No oropharyngeal exudate or posterior oropharyngeal erythema. Eyes: General: Right eye: No discharge. Left eye: No discharge. Extraocular Movements: Extraocular movements intact. Conjunctiva/sclera: Conjunctivae normal. Pupils: Pupils are (more content not included)... [facility] Summary Purpose Family History No Family History Records FoundNo Family History Records Found Advance Directives No Advanced Directives Records FoundNo Advanced Directives Records Found Additional Source Comments INFORMATION SOURCE (unrecogn ized section and content) DATE CREATED AUTHOR AUTHOR'S ORGANIZ ATION 10/12/2021 [facility] FOR RECORDS PERTAINING TO PATIENTS WHO ARE OR HAVE BEEN ENROLLED IN A CHEMICAL DEPENDENCY/SUBSTANCEABUSE PROGRAM, SOME INFORMATION MAY BE OMITTED. This clinical summary was aggregated from multiple sources. Caution should be exercised in using it in the provision of clinical care. This summary normalizes information from multiple sources, and as a consequence, information in this document may materially change the coding, format and clinical context of patient data. In addition, data may be omitted in some cases. CLINICAL DECISIONS SHOULD BE BASED ON THE PRIMARY CLINICAL RECORDS. [employer] provides no warranty or guarantee of the accuracy or completeness of information in this document.
[2023-09-15 20:59] VITALS: BP 121/89; PULSE 107; RESP 16; O2SAT 98
== END 2023-09-15 21:00 | disposition home or self-care (01) ==
LOC: ED 20:14
PROVIDERS: Emergency Provider Emergency Medicine; Visit Provider Emergency Medicine
DX: S00.03XA Contusion of scalp, initial encounter (principal); S39.012A Strain of muscle, fascia and tendon of lower back, initial encounter; F17.210 Nicotine dependence, cigarettes, uncomplicated; F17.290 Nicotine dependence, other tobacco product, uncomplicated; V43.52XA Car driver injured in collision with other type car in traffic accident, initial encounter
CPT/HCPCS: 99282

== ENCOUNTER → 2024-10-04 | Outpatient (CLI) | payer OTHER, SELFPAY ==
[2024-10-04 11:20] LABS: Absolute Lymphocyte Count 1.81 X10^3/uL (0.83-4.51); Absolute Neutrophil Count 4.3 X10^3/uL (2.0-7.7); Basophil# 0.08 X10^3/uL; Basophil% 1.2 % (0-1); Eosinophil# 0.17 X10^3/uL; Eosinophils% 2.5 % (0-5); Hematocrit 41.8 % (37-47); Hemoglobin 13.3 g/dL (12.0-15.0); Lymphocyte # 1.81 X10^3/ul (0.83-4.51); Lymphocyte % 26.2 % (19-41); Mean Corp Hgb Conc 31.8 g/dL (32-36); Mean Corpuscular Hgb 27.9 pg (27.0-32.0); Mean Corpuscular Volume 87.8 fL (81-99); Mean Platelet Vol. 10.3 fl (6.2-12.0); Monocyte# 0.54 X10^3/uL; Monocyte% 7.8 % (0-10); NRBC Flagged by Analyzer 0 % (0-5); Neutrophil # 4.27 X10^3/uL (2.7-7.7); Neutrophil % 61.9 % (47-70); Platelet Count 306 K/mm3 (150-450); RBC Distribution Width CV 14.6 % (11.6-14.6); RBC Distribution Width SD 46.8 fl (35.1-43.9); Red Blood Count 4.76 M/mm3 (4.2-5.4); White Blood Count 6.9 K/mm3 (4.4-11.0)
[2024-10-04 12:01] LABS: ALB/GLOB Ratio 0.9 RATIO (0.9-2.4); AST(SGOT) 19 U/L (15-37); Alanine Aminotransfer ALT/SGPT 25 U/L (13-56); Albumin, Serum 3.6 g/dL (3.2-5.0); Alkaline Phosphatase 94 U/L (45-117); Anion Gap 4 (5-15); BUN 10 mg/dL (7-18); BUN/Creat Ratio 12.3 RATIO (10-20); Calcium,Total 8.8 mg/dL (8.5-10.1); Chloride 106 mmol/L (98-107); Cholesterol 208 mg/dL (200); Creatinine, Serum 0.81 mg/dL (0.55-1.02); EST Glomerular Filtration Rate 84 mL/min (>60); Est Glom Filt Rate - Afr Amer 101 mL/min (>60); Globulin 4.2 g/dL (2.2-4.2); Glucose 87 mg/dL (74-106); High Density Lipoprotein 59 mg/dL; Potassium 4.1 mmol/L (3.5-5.1); Protein, Total 7.8 g/dL (6.4-8.2); Sodium Level 137 mmol/L (136-145); T4 Free Direct 0.77 ng/dL (0.76-1.46); Triglycerides 304 mg/dL; Very Low Density Lipoprotein 61 mg/dL (5-40)
[2024-10-04 14:11] LABS: Hemoglobin A1c 5.3 % (3.8-5.6)
== END | disposition home or self-care (01) ==
PROVIDERS: PCP Family Medicine; Referring Provider Family Medicine; Visit Provider Family Medicine
DX: E03.9 Hypothyroidism, unspecified (principal); Z13.6 Encounter for screening for cardiovascular disorders; Z13.228 Encounter for screening for other metabolic disorders
CPT/HCPCS: 36415; 80053; 80061; 83036; 84439; 84443; 85025

== ENCOUNTER → 2024-12-14 | Outpatient (CLI) | payer OTHER, SELFPAY | END | disposition home or self-care (01) | LOC: VSLAB 11:55 | PROVIDERS: PCP Family Medicine; Visit Provider Family Medicine | DX: E03.9 Hypothyroidism, unspecified (principal) | CPT/HCPCS: 36415; 84439; 84443 ==

== ENCOUNTER → 2025-04-12 | Outpatient (CLI) | payer OTHER, SELFPAY | END | disposition home or self-care (01) | LOC: LAB.FUTURE 13:47 → LAB 04-13 16:45 | PROVIDERS: PCP Family Medicine; Referring Provider Family Medicine; Visit Provider Family Medicine | DX: E03.9 Hypothyroidism, unspecified (principal) | CPT/HCPCS: 36415; 84439; 84443 ==

== ENCOUNTER → 2025-05-16 | Outpatient (CLI) | payer OTHER, SELFPAY | END | disposition home or self-care (01) | LOC: LAB 16:28 | PROVIDERS: PCP Family Medicine; Referring Provider Family Medicine; Visit Provider Family Medicine | DX: E03.9 Hypothyroidism, unspecified (principal) | CPT/HCPCS: 36415; 84439; 84443 ==